=== PATIENT | female | born 1965 ===

== ENCOUNTER 2024-10-30 05:53 | Day surgery (SDC) | payer OTHER ==
[2024-10-23 09:06] VITALS: BP 170/100
[2024-10-23 09:49] LABS: HEMATOCRIT 37.3 % (36.0-45.00); HEMOGLOBIN 12.5 g/dL (12.0-15.00); MEAN CELL VOLUME 88.9 fL (80.00-100.00); MEAN CORPUSCULAR HEMOGLOBIN 29.8 pg (27.00-32.0); MEAN CORPUSCULAR HGB CONC 33.5 g/dl (32.0-36.0); PLATELET COUNT 203 K/uL (150-450); RED BLOOD COUNT 4.19 M/uL (4.00-6.00); RED CELL DISTRIBUTION WIDTH 14.1 % (11.5-14.5)
[2024-10-23 09:55] LABS: URINE APPEARANCE Clear; URINE BILIRRUBIN Negative (NEGATIVE); URINE BLOOD Negative; URINE COLOR Yellow; URINE GLUCOSE Negative (NEGATIVE); URINE KETONE Negative (NEGATIVE); URINE LEUKOCYTE Trace; URINE NITRATE Negative; URINE PROTEIN Negative (NEGATIVE); URINE UROBILINOGEN 0.2 E.U./dl
[2024-10-23 10:00] LABS: URINE BACTERIA 170.1 uL (0.0-1933); URINE EPITHELIAL CELLS 15.5 uL (0.0-38.8); URINE RBC 5.5 uL (0.0-20.8); URINE WBC 16.7 uL (0.0-23.2)
[2024-10-23 10:09] LABS: INR < 0.93; PARTIAL THROMBOPLASTIN TIME 26.2 SECONDS (22.0-34.0); PROTHROMBIN TIME 10.2 SECONDS (9.0-11.5)
[2024-10-23 10:26] LABS: BLOOD UREA NITROGEN 10 mg/dL (7-18); BUN CREA RATIO 13 (7.0-25.0); CALCIUM 9.3 mg/dL (8.5-10.1); CARBON DIOXIDE 36 mEq/L (21-32); CHLORIDE 109 mmol/L (98-107); CREATININE SERUM 0.78 mg/dL (0.55-1.02); GFR 75.59; GLUCOSE FASTING 96 mg/dL (65-100); OSMOLALITY SERUM 276 MOSM/KG (275-295); POTASSIUM 4.75 mEq/L (3.5-5.1); SODIUM 139 mmol/L (136-145)
[2024-10-30] MEDS ORDERED: BUPIVACAINE HCL/MPF 0.5% 30ML VIAL ONE (09:19)
[2024-10-30] MEDS ORDERED: CEFAZOLIN SODIUM 1,000 MG VIAL ONE (09:19)
[2024-10-30] MEDS ORDERED: MIRALAX17 GM PO (09:32)
[2024-10-30] MEDS ORDERED: KETO10TA2 PO (09:32)
[2024-10-30] MEDS ORDERED: TYLENOL ARTHRI650 MG PO (09:32)
[2024-10-30] MEDS ORDERED: TRAMADOL HCL50 MG PO (09:32)
[2024-10-30] MEDS ORDERED: KETOROLAC TROMETHAMINE 30 MG VIAL ONE (11:36)
[2024-10-30] MEDS ORDERED: NEURONTIN300 MG PO (11:56)
[2024-10-30] MEDS ORDERED: MORPHINE SULFATE 4 MG/ML VIAL IV ONE ×2 (12:55→13:25)
[2024-10-30] MEDS ORDERED: TAMSULOSIN HCL 0.4 MG CAP PO ONE ×2 (17:57→18:30)
== END 2024-10-30 18:10 | disposition home or self-care (01) ==
LOC: SURH 05:53 → CIR.AMB 05:53 → O/R 05:53 → EDSTATUS 07:45 → SURH 07:45 → O/R 18:10 → CIR.AMB 18:10
PROVIDERS: ATTEND Surgery
DX: K43.0 Incisional hernia with obstruction, without gangrene (principal)
CPT/HCPCS: 49594; C1781